=== PATIENT | female | born 1950 | race Caucasian/White ===

== ENCOUNTER 2019-03-10 19:00 | Emergency (ER) | payer MEDICARE, OTHER, MEDICAID ==
[~2019-03-10] VITALS: Ht 152.4 cm; Wt 68.0 kg
--- NOTE | 2019-03-10 19:27 | NUR ---
PATIENT AMBULATED WITH STABLE GAIT. SPEECH IS CLEAR SPEAKS IN COMPLETE SENTENCES. NO NEURO DEFICITS NOTED. A/OX4. PATIENT CAME FOR C/O RIGHT EYE CHEMICAL BURN THIS AFTERNOON AFTER DYING HER HAIR. SHE CAME IN FOR WORSENING PAIN AND IRRITATION. UPON ASSESSMENT OF VISUAL ACUITY SHE WAS NOT ABLE TO OPEN HER EYE TO READ THE SNELLEN CHART DUE TO THE AMOUNT OF IRRITATION. PATIENT IN BED AT LOWEST POSITION, SR UPX2, CALL LIGHT WITHIN REACH. FALL PRECAUTIONS IMPLEMENTED PER PROTOCOL.
[2019-03-10] MEDS ORDERED: TETRACAINE HCL 0.5% OPHT DROP 2 ML BOTTLE ONE (19:40)
--- NOTE | 2019-03-10 19:42 | NUR ---
Called [facility] for advisement on the patient case. Sophie from [facility] advised that patient's eyes should be irrigated for 20-30 minutes continuously, and use of fluorescein to assess the eye further. Referral to opthamlogist is recommended.
[2019-03-10] MEDS ORDERED: FLUORESCEIN SODIUM 1 MG STRIP OP ONE (19:45)
[2019-03-10] MEDS ORDERED: TETRACAINE HCL 0.5% OPHT DROP 2 ML BOTTLE OP ONE (19:45)
[2019-03-10] MEDS ORDERED: FLUORESCEIN SODIUM 1 MG STRIP ONE (20:00)
[2019-03-10] MEDS ORDERED: MORPHINE SULFATE 4 MG/1 ML DISP.SYRIN IM ONE (21:00)
[2019-03-10] MEDS ORDERED: ONDANSETRON 4 MG/2 ML VIAL IM ONE (21:00)
[2019-03-10] MEDS ORDERED: IBUPROFEN 800 MG TABLET ONE (21:06)
[2019-03-10] MEDS ORDERED: ONDANSETRON 4 MG/2 ML VIAL ONE (21:11)
[2019-03-10] MEDS ORDERED: MORPHINE SULFATE 4 MG/1 ML DISP.SYRIN ONE (21:11)
--- NOTE | 2019-03-10 21:27 | NUR ---
Patient discharged to home in stable conditon. Written and verbal after care instructions given. Patient verbalizes understanding of instructions. Patient ambulated with stable gait.
[2019-03-10 21:49] VITALS: BP 135/85
== END 2019-03-10 21:50 | disposition home or self-care (01) ==
LOC: ER 19:07
DX: S05.01XA Injury of conjunctiva and corneal abrasion without foreign body, right eye, initial encounter (principal); H10.213 Acute toxic conjunctivitis, bilateral; E78.5 Hyperlipidemia, unspecified; E11.9 Type 2 diabetes mellitus without complications; X58.XXXA Exposure to other specified factors, initial encounter; Y93.89 Activity, other specified; Y92.89 Other specified places as the place of occurrence of the external cause; Y99.8 Other external cause status
CPT/HCPCS: 96372 ×2; 99283; J2270; J2405; A4663; J7030